=== PATIENT | female | born 1980 | race Native Hawaiian/Other Pacific Islander ===

== ENCOUNTER 2019-07-09 14:07 | Emergency (ER) | payer OTHER ==
[~2019-07-09] VITALS: Ht 180.3 cm; Wt 113.4 kg
[2019-07-09] MEDS ORDERED: Zithromax250 MG PO (15:35)
[2019-07-09] MEDS ORDERED: Prednisone20 MG PO (15:35)
[2019-07-09] MEDS ORDERED: ALBU90OI INH (15:35)
== END 2019-07-09 15:49 | disposition home or self-care (01) ==
LOC: ER 14:07
DX: J18.9 Pneumonia, unspecified organism (principal)
CPT/HCPCS: 71046; 87081; 87430; 99283-25